=== PATIENT | female | born 1970 | race Caucasian/White ===

== ENCOUNTER → 2021-06-11 00:36 | Outpatient (CLI) | payer OTHER, SELFPAY ==
[2021-06-11 23:52] LABS: SARS-CoV-2 RNA PCR Negative
== END ==
PROVIDERS: PCP Family Medicine; Visit Provider Internal Medicine Gastroenterology
DX: Z01.812 Encounter for preprocedural laboratory examination (principal); Z20.822 Contact with and (suspected) exposure to COVID-19
CPT/HCPCS: C9803; U0003; U0005

== ENCOUNTER 2021-06-14 01:27 | Day surgery (SDC) | payer OTHER, SELFPAY ==
[2021-06-08 10:53] VITALS: BMI 25.7
--- NOTE | 2021-06-11 18:08 | WPDANESEPP ---
Anes - Eval Pre Procedure Procedure: Operation Date: 06/14/21 12:45 Proposed Procedures p Screening Colonoscopy - Jose Antonio Tyler MD Date/Time: 06/11/21 18:08 Pre Op Diagnosis: neoplasm screening Patient Data Age: 50 Gender: F Height: 1.63 m Weight: 68 kg Allergies Allergy/AdvReac Type Severity Reaction Status Date / Time No Known Allergies Allergy Unverified 06/08/21 10:50 Home Medications Medication Instructions Recorded Confirmed Type buspirone 5 mg tablet 5 mg PO BID PRN #60 tablet 02/23/21 06/08/21 Rx icosapent ethyl 1 gram capsule 2 g PO BID 02/23/21 06/08/21 History lisinopril 5 mg tablet 5 mg PO DAILY 02/23/21 06/08/21 History metformin 500 mg tablet 500 mg PO BID #60 tablet 03/31/21 06/08/21 Rx semaglutide 0.5 mg SUBCUT WEEKLY #1.5 ml 03/31/21 06/08/21 Rx Patient hx anesthesia problems: none Family hx anesthesia problems: none PMFSH Past Medical History Medical History (Updated 06/11/21 @ 18:09 by Rodolfo Pacheco DO) Anxiety Diabetes GERD (gastroesophageal reflux disease) Pure hyperglyceridemia Surgical History Surgical History History of oophorectomy, unilateral History of tonsillectomy Family History Family History Sibling Asthma Son Diabetes mellitus Social History Social History Smoking packs per day: 1 Smoking cigarettes per day: 20.0 Years smoked: 40 Smoking pack-years: 40.00 Smoking status: Current every day smoker Tobacco type: cigarettes Second hand tobacco smoke exposure: Yes Alcohol intake: never Alcohol use details: rarely Substance use: current Substance use type: marijuana Gender identity (if verbalized by the patient): Female Spiritual care concerns: No Exam Day of Procedure 06/11/21 18:08
[2021-06-14 12:02] VITALS: BP 117/88; PULSE 90; RESP 16; TEMP 36.1; O2SAT 99; BMI 25.6
--- NOTE | 2021-06-14 12:17 | WPDANESEFPP ---
Anes - Eval Final PreProcedure Day of Procedure 06/14/21 12:17 Patient weight: overweight Heart: regular rate and rhythm Lungs: clear to auscultation Airway: Mallampati scale class II Neurological: alert and oriented Last oral intake: >/= 8 hours ASA classification: III Emergent: no Anesthetic plan: proceed Anesthesia type and monitoring: general GIVS and standard monitoring Informed Consent: The patient's anesthetic plan and its attendant risks and benefits were discussed with the patient/family/POA. Questions were solicited and answers provided to the satisfaction of the patient/family/POA.
[2021-06-14] MEDS: LACTATED RINGERS 1,000 ML 150 ML IV CONT (12:20)
[2021-06-14 12:22] LABS: Glucose Point of Care 104 mg/dl (65-105)
--- NOTE | 2021-06-14 12:39 | PM.HPGS ---
History of Present Illness History of Present Illness Consent: Risks, benefits, and alternatives have been discussed and questions answered. Patient agrees to proceed with procedure. Chief complaint: neoplasm screening Narrative: Selene Sheppard is a 50 year old female here for first screening colonoscopy Review of Systems Constitutional: Constitutional: Denies headache(s) and Denies weakness Eyes: Eyes: Denies blurry vision ENT: Reports Normal hearing present, Denies headache(s) and Denies neck pain Cardiovascular: Cardiovascular: Denies chest pain and Denies dyspnea Respiratory: Respiratory: Denies dyspnea Gastrointestinal: Gastrointestinal: Reports no additional gastrointestinal complaints Genitourinary: Genitourinary: Denies dysuria Musculoskeletal: Musculoskeletal: Denies neck pain Integumentary/Breasts: Skin/Breast: Denies dry skin Neurologic: Reports Normal hearing present, Denies headache(s) and Denies weakness Psychiatric: Psychiatric: Denies anxiety Endocrine: Endocrine: Denies change in body appearance Hematologic/Lymphatic: Hematologic/Lymphatic: Denies easy bleeding Allergic/Immunologic: Allergic/Immunologic: Denies urticaria PMFSH Past Medical History Medical History (Updated 06/14/21 @ 12:39 by Jose Antonio Tyler MD) Anxiety Colon cancer screening Diabetes GERD (gastroesophageal reflux disease) Pure hyperglyceridemia Surgical History Surgical History History of oophorectomy, unilateral History of tonsillectomy Family History Family History Sibling Asthma Son Diabetes mellitus Social History Social History Smoking packs per day: 1 Smoking cigarettes per day: 20.0 Years smoked: 40 Smoking pack-years: 40.00 Smoking status: Current every day smoker Tobacco type: cigarettes Second hand tobacco smoke exposure: Yes Alcohol intake: never Alcohol use details: rarely Substance use: current Substance use type: marijuana Living arrangements: with family Gender identity (if verbalized by the patient): Female Spiritual care concerns: No Meds Home Medications and Allergies Home Medications Medication Instructions Recorded Confirmed Type buspirone 5 mg tablet 5 mg PO BID PRN #60 tablet 02/23/21 06/08/21 Rx icosapent ethyl 1 gram capsule 2 g PO BID 02/23/21 06/08/21 History lisinopril 5 mg tablet 5 mg PO DAILY 02/23/21 06/08/21 History metformin 500 mg tablet 500 mg PO BID #60 tablet 03/31/21 06/08/21 Rx semaglutide 0.5 mg SUBCUT WEEKLY #1.5 ml 03/31/21 06/08/21 Rx Allergies Allergy/AdvReac Type Severity Reaction Status Date / Time No Known Allergies Allergy Verified 06/14/21 12:01 Vital Signs Vital Signs - 24 hr 06/14/21 12:02 Temperature 96.9 F L Pulse Rate 90 Respiratory Rate 16 Blood Pressure 117/88 Pulse Oximetry 99 Exam Const: General: comfortable and no acute distress HENMT: General nose exam: Normal nares present Eyes: General: appearance normal, both eyes and all related structures Neck: Neck: no JVD Resp: Auscultation: clear to auscultation bilaterally Cardio: Rate: regular rate Rhythm: regular rhythm GI: Inspection: non-distended GI Palp: Yes Soft to palpation Skin: General skin exam: normal color Neuro: General: gait normal Speech: normal speech Extrem: General: normal to inspection Psych: Mental Status: mental status grossly normal Assessment and Plan Assessment and plan (1) Colon cancer screening: Code(s): Z12.11 - Encounter for screening for malignant neoplasm of colon Status: Acute Assessment and Plan: colonoscopy
[2021-06-14 12:59] VITALS: BP 96/60; PULSE 79; RESP 21; O2SAT 99
[2021-06-14 13:09] VITALS: BP 99/59; PULSE 78; RESP 20; O2SAT 100
[2021-06-14 13:26] VITALS: BP 99/58; PULSE 71; RESP 16; O2SAT 100
== END 2021-06-14 13:25 | disposition home or self-care (01) ==
PROVIDERS: PCP Family Medicine; Visit Provider Internal Medicine Gastroenterology
PROC: 0DJD8ZZ Inspection of Lower Intestinal Tract, Via Natural or Artificial Opening Endoscopic (ICD-10-PCS; CPT 45378; principal; 2021-06-14 12:45)
DX: Z12.11 Encounter for screening for malignant neoplasm of colon (principal); K57.30 Diverticulosis of large intestine without perforation or abscess without bleeding; K64.8 Other hemorrhoids; F41.9 Anxiety disorder, unspecified; K21.9 Gastro-esophageal reflux disease without esophagitis; E11.65 Type 2 diabetes mellitus with hyperglycemia; F17.210 Nicotine dependence, cigarettes, uncomplicated; Z79.84 Long term (current) use of oral hypoglycemic drugs
CPT/HCPCS: 45378; 82948; C9803; J2704; J7120; U0003; U0005

== ENCOUNTER 2024-01-26 14:56 | Outpatient (CLI) | payer OTHER, SELFPAY ==
[2024-01-26 15:18] LABS: Hematocrit 43.7 % (37.0-47.0); Hemoglobin 14.5 g/dL (12.0-15.0); Mean Corpuscular HGB Conc 33.2 g/dl (32-36); Mean Corpuscular Hemoglobin 29.1 pg (26-34); Mean Corpuscular Volume 87.6 fl (80-100); Mean Platelet Volume 12.1 fl (7.4-10.4); Platelet Count Result 189 k/mm3 (150-375); Red Blood Count 4.99 M/mm3 (4.2-5.4); Red Cell Distribution Width 12.9 % (11.5-14.5); White Blood Count 11.3 K/mm3 (4.5-10.0)
[2024-01-26 15:30] LABS: Appearance Urine Clear (Clear); Bacteria Urine 4+ /hpf; Bilirubin Urine Negative (Negative); Blood Urine Negative (Negative); Color Urine Yellow (Yellow); Glucose Urine UA 3+ mg/dL (Negative); Ketones Urine Trace mg/dL (Negative); Leukocyte Esterase Ur Trace LEU/UL (Negative); Nitrate Urine Negative (Negative); Non Pathogenic Casts 0-2; Protein Urine Trace mg/dL (Negative); RBC Urine 0-2 /hpf (0-2); Specific Grav Ur 1.025 (1.001-1.035); Squamous Epithelial Cell Urine Few /hpf (Few); Urobilinogen Urine 0.2 mg/dL (<2.0)
[2024-01-26 15:34] LABS: Add Urine Microscopic? YES
[2024-01-26 15:42] LABS: Alanine Aminotransferase 40 U/L (6-35); Albumin Level 4.4 g/dL (3.5-5.1); Alkaline Phosphatase 104 U/L (38-126); Anion Gap 8 mmol/L (8-16); Aspartate Amino Transferase 46 U/L (14-36); Bilirubin,Total 0.5 mg/dL (0.2-1.3); Blood Urea Nitrogen 12 mg/dL (7-17); Calcium 9.8 mg/dL (8.4-10.2); Carbon Dioxide 24 mmol/L (22-30); Chloride 104 mmol/L (98-107); Cholesterol 211 mg/dL (0-200); Estimated Glomerular Filt Rate > 60; Glucose 175 mg/dL (65-110); HDL Direct 31 mg/dL; Potassium 3.8 mmol/L (3.4-5.0); Sodium 136 mmol/L (137-145); Triglycerides 519 mg/dL (<150)
[2024-01-26 15:54] LABS: LDL Cholesterol Direct 85 mg/dL
[2024-01-26 16:49] LABS: Folic Acid 10.4 ng/mL (2.76->20)
[2024-01-26 17:10] LABS: Creatinine Urine 136.6 mg/dL
[2024-01-26 17:14] LABS: MALB Creatinine Ratio 41.4 mg/g (0-30); Microalbumin Urine Random 56.5 mg/L (0-16.7)
[2024-01-26 17:57] LABS: Eosinophils Absolute Manual 0.11 K/mm3 (0.02-0.50); Eosinophils Percent Manual 1 % (0-4); Lymphocytes Absolute Manual 5.87 K/mm3 (1.1-4.5); Monocytes Absolute Manual 0.22 K/mm3 (0.1-0.90); Monocytes Percent Manual 2 % (3-9); Neutrophils Percent Manual 45 % (46-73); Platelet Estimate Adequate (Adequate); Total Cells Counted 100
[2024-01-26 17:58] LABS: Schistocytes None Seen
[2024-01-26 18:35] LABS: Hemoglobin A1C 10.9 % (<5.7)
== END 2024-01-26 14:57 | disposition home or self-care (01) ==
LOC: ANHLAB 14:57
PROVIDERS: PCP Family Medicine; Visit Provider Physician Assistant
DX: Z00.00 Encounter for general adult medical examination without abnormal findings (principal); G62.9 Polyneuropathy, unspecified; E11.9 Type 2 diabetes mellitus without complications; E78.1 Pure hyperglyceridemia; F32.9 Major depressive disorder, single episode, unspecified; F41.9 Anxiety disorder, unspecified
CPT/HCPCS: 36415; 80053; 80061; 82043; 82607; 82746; 83036; 84443; 85025

== ENCOUNTER 2024-08-07 13:50 | Outpatient (CLI) | payer OTHER, SELFPAY ==
--- NOTE | ~2024-08-07 | XR_ITS ---
XR shoulder LT min 2V Ordering provider: Roly Nova PA-C History: . M25.512 - Pain in left shoulder . Comparison: March 07, 2016. FINDINGS: BONES: No acute fracture or dislocation. JOINT SPACES: The acromioclavicular joint shows osteoarthritic changes. The glenohumeral joint is nor mal. SOFT TISSUES: Calcification in the insertion of the supraspinatus tendon. IMPRESSION: No acute osseous abnormality left shoulder. Highly suggestive Supraspinatous tendinosis. Osteoarthritic changes of the left acromioclavicular joint. Reviewed, dictated and finalized at location A.
[2024-08-07 14:42] LABS: Hemoglobin A1C 9.2 % (<5.7)
[2024-08-07 14:53] LABS: Alanine Aminotransferase 43 U/L (6-35); Albumin Level 4.4 g/dL (3.5-5.1); Alkaline Phosphatase 96 U/L (38-126); Anion Gap 10 mmol/L (4-12); Aspartate Amino Transferase 42 U/L (14-36); Bilirubin,Total 0.5 mg/dL (0.2-1.3); Blood Urea Nitrogen 8 mg/dL (7-17); Calcium 9.1 mg/dL (8.4-10.2); Carbon Dioxide 24 mmol/L (22-30); Chloride 103 mmol/L (98-107); Cholesterol 203 mg/dL (0-200); Estimated Glomerular Filt Rate > 60; Glucose 156 mg/dL (65-110); HDL Direct 30 mg/dL; LDL Cholesterol Direct 74 mg/dL; Potassium 3.9 mmol/L (3.4-5.0); Sodium 137 mmol/L (137-145)
[2024-08-07 14:56] LABS: Triglycerides 596 mg/dL (<150)
== END 2024-08-07 13:51 | disposition home or self-care (01) ==
PROVIDERS: PCP Family Medicine; Visit Provider Physician Assistant
DX: E11.9 Type 2 diabetes mellitus without complications (principal); E78.1 Pure hyperglyceridemia; M89.8X1 Other specified disorders of bone, shoulder; M19.012 Primary osteoarthritis, left shoulder
CPT/HCPCS: 36415; 73030; 80053; 80061; 83036